=== PATIENT | male | born 1980 | race Caucasian/White ===

== ENCOUNTER 2018-05-18 16:07 | Emergency (ER) | payer OTHER ==
[~2018-05-18] VITALS: Ht 182.9 cm; Wt 147.7 kg
[2018-05-18 17:03] VITALS: BP 157/93
== END 2018-05-18 16:54 | disposition home or self-care (01) ==
LOC: ED 16:07
DX: S61.411A Laceration without foreign body of right hand, initial encounter (principal); W26.8XXA Contact with other sharp object(s), not elsewhere classified, initial encounter; Y99.0 Civilian activity done for income or pay; Z88.2 Allergy status to sulfonamides